=== PATIENT | female | born 1965 | race Two or more races ===

== ENCOUNTER 2021-02-07 09:07 | Day surgery (SDC) | payer OTHER ==
[~2021-02-07] VITALS: Ht 167.6 cm; Wt 68.9 kg
[2021-02-07] MEDS ORDERED: fentaNYL citrate 0.05 MG/ML VIAL ONE (10:56)
[2021-02-07] MEDS ORDERED: MIDAZOLAM 5 MG/5 ML VIAL ONE (10:56)
[2021-02-07] MEDS ORDERED: LIDOCAINE 2% 100 MG/5 ML UJET TP ONE ×2 (10:56→11:35)
[2021-02-07] MEDS ORDERED: MIDAZOLAM 2 MG/2 ML VIAL IVP ONE (11:35)
[2021-02-07] MEDS ORDERED: SIMETHICONE 40 MG/0.6 ML PO ONE (11:40)
[2021-02-07] MEDS ORDERED: fentaNYL citrate 0.05 MG/ML VIAL IVP ONE (11:50)
== END 2021-02-07 12:55 | disposition home or self-care (01) ==
LOC: MFCC 09:07 → MDS 09:07
PROVIDERS: ATTEND Internal Medicine Gastroenterology
DX: Z12.11 Encounter for screening for malignant neoplasm of colon (principal); K29.70 Gastritis, unspecified, without bleeding; I10 Essential (primary) hypertension; E03.9 Hypothyroidism, unspecified; K21.9 Gastro-esophageal reflux disease without esophagitis; K59.00 Constipation, unspecified; Z79.899 Other long term (current) drug therapy
CPT/HCPCS: 36415; 43239; 45378; 86677; J2250; J3010